=== PATIENT | female | born 1960 | race African-American/Black ===

== ENCOUNTER 2017-09-03 04:57 | Day surgery (SDC) | payer OTHER ==
[2017-08-29 16:28] VITALS: BMI 38.2
[2017-09-03] MEDS ORDERED: PROPOFOL 20 ML ONE ×2 (11:48→12:37)
[2017-09-03] MEDS ORDERED: LIDOCAINE HCL/PF 2% SDV 5ML VIAL ONE (11:48)
[2017-09-03] MEDS ORDERED: fentaNYL CITRATE 250 MCG/5 ML VIAL ONE (11:48)
[2017-09-03] MEDS ORDERED: ROCURONIUM BROMIDE 50 MG/5 ML VIAL ONE (11:48)
[2017-09-03] MEDS ORDERED: MIDAZOLAM HCL 2 MG/2 ML SINGLE DOSE VIAL ONE (11:48)
[2017-09-03] MEDS ORDERED: DEXAMETHASONE SOD PHOSPHATE 4 MG/1 ML VIAL ONE (11:48)
[2017-09-03] MEDS ORDERED: SODIUM CHLORIDE 0.9% P/F 10 ML VIAL IJ ONE (12:30)
[2017-09-03] MEDS ORDERED: ceFAZolin SODIUM 1 GM VIAL ONE (12:30)
[2017-09-03] MEDS ORDERED: ceFAZolin SODIUM 1 GM VIAL IVPB ONE (12:31)
[2017-09-03] MEDS ORDERED: ACETAMINOPHEN 325 MG TABLET (FP) PO PRN (13:26)
[2017-09-03] MEDS ORDERED: IBUPROFEN 400 MG TABLET (FP) PO PRN (13:26)
[2017-09-03] MEDS ORDERED: ONDANSETRON 4 MG/2 ML VIAL IVPUSH PRN (14:14)
[2017-09-03] MEDS ORDERED: oxyCODONE HCL 5 MG TABLET PO PRN ×2 (14:14)
[2017-09-03] MEDS ORDERED: LACTATED RINGERS SOLUTION 1,000 ML IV SCH (14:15)
--- NOTE | 2017-09-03 15:49 | OP ---
DATE OF OPERATION: 09/03/2017 PREOPERATIVE DIAGNOSIS: Frequent grade 2 cervical lesion (cervical dysplasia). POSTOPERATIVE DIAGNOSIS: Frequent grade 2 cervical lesion (cervical dysplasia). SURGEON: Mita Samaniego M.D. ANESTHESIA: General. OPERATION: Loop electrosurgical excision procedure and endocervical curetting. DESCRIPTION OF PROCEDURE: While patient as prepped and draped under general anesthesia, during examination under anesthesia revealed vagina clean, cervix closed, normal, adnexa negative. During the procedure, weighted speculum was applied in the vagina, cervix grasped with tenaculum, and the lip with the was done, and tissue removed and sent to pathology, and some cervical curetting was done. Estimated blood loss was 10 mL. Patient tolerated procedure, was sent to recovery room in good condition. Penelope [id number]
[2017-09-03 16:10] VITALS: BP 126/53; PULSE 88
[2017-09-03 16:32] VITALS: TEMP 98.9
--- NOTE | 2017-09-09 17:18 | PATH ---
Surgical Pathology Report Patient Name: GEORGES SALDIVAR [facility]. Rec. #: [id number] /Age/Gender: 1960 (Age: 57) / F Account: [id number] Location: [facility] SURGICAL Taken: 09/03/2017 Received: 09/03/2017 Reported: 09/09/2017 Physicians: Mita Samaniego M.D. Specimen(s) Received A: ENDOCERVICAL CURETTINGS B: LEEP CERVICAL CONE BX Clinical History Severe dysplasia Final Diagnosis A. ENDOCERVICAL CURETTINGS, DILATION AND CURETTAGE: SCANT FRAGMENTS OF SQUAMOUS EPITHELIUM WITH LOW GRADE SQUAMOUS INTRAEPITHELIAL LESION (CERVICAL INTRAEPITHELIAL NEOPLASIA 1/ LYNN 1) ADMIXED WITH BLOOD. B. CERVIX, LOOP ELECTROSURGICAL EXCISION PROCEDURE (LEEP)/CONE BIOPSY: CERVICAL SQUAMOUS MUCOSA WITH LOW GRADE SQUAMOUS INTRAEPITHELIAL LESION (CERVICAL INTRAEPITHELIAL NEOPLASIA 1/ LYNN 1). NO HIGH GRADE DYSPLASIA IDENTIFIED. LSIL PRESENT AT INKED SURGICAL RESECTION MARGINS. TRANSFORMATION ZONE: ABSENT. Comment: Part B, Immunohistochemical stains performed at [place], [place] ([id number]) and interpreted at [facility] show p16 shows focal positivity. Proliferative marker, ki-67 was utilized evaluate this case. Electronically Signed Katty Hammond M.D. Gross Description A. Received in formalin labeled "endocervical curettings," is a 0.7 x 0.5 x 0.2 cm aggregate of painter-red soft tissue fragments. The specimen is entirely submitted in one cassette. B. Received in formalin labeled "LEEP cone biopsy," are 4 painter, irregular, unoriented portions of soft tissue ranging from 0.6 x 0.3 x 0.2 cm to 1.6 x 0.8 x 0.5 cm, consistent with portions of cervix. Some of the specimens are partially surfaced by a painter-pink mucosa. The specimens are inked blue, serially sectioned and entirely submitted in 4 cassettes. 09/03/201709/03/2017
== END 2017-09-03 16:30 | disposition home or self-care (01) ==
LOC: JASU-SURG 04:57
PROVIDERS: ATTEND Obstetrics & Gynecology
PROC: 0UBC7ZX Excision of Cervix, Via Natural or Artificial Opening, Diagnostic (ICD-10-PCS; principal; 2017-09-03 11:30)
DX: N87.1 Moderate cervical dysplasia (principal)
CPT/HCPCS: 86850; 86900; 86901; 88305-TC; 88307-TC; 94760

== ENCOUNTER 2018-09-04 07:44 | Day surgery (SDC) | payer OTHER ==
[2018-09-04] MEDS ORDERED: DEXAMETHASONE SODIUM PHOSPHATE 8 MG in SODIUM CHLORIDE 50 ML IVPB ONE (10:00)
[2018-09-04] MEDS ORDERED: FERRIC CARBOXYMALTOSE 750 MG in SODIUM CHLORIDE 250 ML IVPB ONE (10:30)
[2018-09-04 18:02] VITALS: BP 139/93; PULSE 101; TEMP 98.7
== END 2018-09-04 15:15 | disposition home or self-care (01) ==
LOC: JONCNONCHE 07:44 → J7W 13:03 → JONCNONCHE 15:15
PROVIDERS: ATTEND Internal Medicine Hematology & Oncology
PROC: 3E033GC Introduction of Other Therapeutic Substance into Peripheral Vein, Percutaneous Approach (ICD-10-PCS; principal; 2018-09-04)
DX: D50.9 Iron deficiency anemia, unspecified (principal)
CPT/HCPCS: 96365; J1439

== ENCOUNTER 2018-09-11 07:07 | Day surgery (SDC) | payer OTHER ==
[2018-09-11] MEDS ORDERED: FERRIC CARBOXYMALTOSE 750 MG in SODIUM CHLORIDE 250 ML IVPB ONE (10:00)
[2018-09-11] MEDS ORDERED: DEXAMETHASONE SODIUM PHOSPHATE 8 MG in SODIUM CHLORIDE 50 ML IVPB ONE (10:00)
[2018-09-11] MEDS ORDERED: DEXAMETHASONE SOD PHOSPHATE 4 MG/1 ML VIAL IVPB ONE (12:45)
[2018-09-11 17:06] VITALS: TEMP 98.3
[2018-09-11 17:13] VITALS: BP 127/70; PULSE 94
== END 2018-09-11 16:00 | disposition home or self-care (01) ==
LOC: JONCNONCHE 07:07 → J7W 12:31 → JONCNONCHE 16:00
PROVIDERS: ATTEND Internal Medicine Hematology & Oncology
PROC: 3E033GC Introduction of Other Therapeutic Substance into Peripheral Vein, Percutaneous Approach (ICD-10-PCS; principal; 2018-09-11)
DX: D50.9 Iron deficiency anemia, unspecified (principal)
CPT/HCPCS: 96365; 96375; J1439

== ENCOUNTER 2021-11-02 18:55 | Emergency (ER) | payer OTHER ==
[2021-11-02 19:08] VITALS: BP 131/77; PULSE 72; RESP 18; TEMP 98; BMI 31.9
[2021-11-02] MEDS ORDERED: KETOROLAC TROMETHAMINE 60 MG/2 ML VIAL IM ONE (20:44)
[2021-11-02] MEDS ORDERED: KETOROLAC TROMETHAMINE 30 MG/1 ML VIAL ONE (21:22)
== END 2021-11-02 22:18 | disposition home or self-care (01) ==
LOC: JER 18:55
PROC: 3E0233Z Introduction of Anti-inflammatory into Muscle, Percutaneous Approach (ICD-10-PCS; principal; 2021-11-02)
DX: M54.31 Sciatica, right side (principal)
CPT/HCPCS: 99284-25